=== PATIENT | male | born 1970 | race Two or more races ===

== ENCOUNTER 2025-02-02 05:49 | Emergency (ER) | payer OTHER ==
[~2025-02-02] VITALS: Ht 172.7 cm; Wt 77.1 kg
[2025-02-02] MEDS ORDERED: ZOLOFT25 MG PO (06:05)
[2025-02-02] MEDS ORDERED: WELLBUTRIN SR100 MG PO (06:05)
[2025-02-02] MEDS ORDERED: LIPITOR40 M1 PO (06:05)
[2025-02-02] MEDS ORDERED: HYOSCYAMINE SULFATE 0.125 MG TAB.SUBL SL STA (06:49)
[2025-02-02] MEDS ORDERED: 0.9 % SODIUM CHLORIDE 1,000 ML IV STA (06:50)
[2025-02-02] MEDS ORDERED: KETOROLAC TROMETHAMINE 30 MG VIAL IV STA (06:51)
[2025-02-02] MEDS ORDERED: MORPHINE SULFATE 4 MG/ML VIAL IV STA (06:51)
[2025-02-02] MEDS ORDERED: HYOSCYAMINE SULFATE 0.125 MG TAB.SUBL ONE (07:06)
[2025-02-02] MEDS ORDERED: KETOROLAC TROMETHAMINE 30 MG VIAL ONE (07:06)
[2025-02-02 07:51] LABS: HEMATOCRIT 43.5 % (39.0-48.0); HEMOGLOBIN 15.3 g/dL (13-16.00); MEAN CORPUSCULAR HEMOGLOBIN 31.2 pg (27.00-32.0); MEAN CORPUSCULAR HGB CONC 35.1 g/dl (32.0-36.0); PLATELET COUNT 266 K/uL (150-450); RED BLOOD COUNT 4.89 M/uL (4.00-6.00); RED CELL DISTRIBUTION WIDTH 13.2 % (11.5-14.5)
[2025-02-02 08:10] LABS: CALCIUM 9.8 mg/dL (8.5-10.1); CREATININE SERUM 1.13 mg/dL (0.70-1.30); GFR 67.88; POTASSIUM 3.71 mEq/L (3.5-5.1)
[2025-02-02 08:11] LABS: INR 1.06; PARTIAL THROMBOPLASTIN TIME 23.7 SECONDS (22.0-34.0); PROTHROMBIN TIME 11.5 SECONDS (9.0-11.5)
[2025-02-02] MEDS ORDERED: SODIUM BICARBONATE 50MEQ/50ML VIAL IV ONE (08:50)
[2025-02-02] MEDS ORDERED: ZOFRAN8 MG PO (13:18)
[2025-02-02] MEDS ORDERED: METRONIDAZOLE500 MG PO (13:18)
[2025-02-02] MEDS ORDERED: KETO10TA2 PO (13:18)
[2025-02-02] MEDS ORDERED: PEPCID AC20 MG PO (13:18)
[2025-02-02] MEDS ORDERED: CIPRO500 MG PO (13:18)
== END 2025-02-02 13:27 | disposition home or self-care (01) ==
LOC: ER 05:50
DX: R10.9 Unspecified abdominal pain (principal); R11.10 Vomiting, unspecified

== ENCOUNTER 2025-02-04 18:39 | Inpatient (IN) | payer OTHER ==
[~2025-02-04] VITALS: Ht 172.7 cm; Wt 122.5 kg
[~2025-02-04 18:39] MED LIST: CIPRO500 MG PO; KETO10TA2 PO; LIPITOR40 M1 PO; METRONIDAZOLE500 MG PO; PEPCID AC20 MG PO; WELLBUTRIN SR100 MG PO; ZOFRAN8 MG PO; ZOLOFT25 MG PO
--- NOTE | 2025-02-04 18:58 | NUR ---
PTE ALERTA Y ORIENTADO X3 REFIERE VENIR A BRAD DEBIDO A QUE EL MISMO FUE DADO DE PRADIP EL TONO CON TRATAMIENTO EN EL HOGAR YA QUE EL MISMO NO QUISO ESPERAR A SER VISTO POR INTERNISTA. PTE EXPRESA QUE LOS MEDICAMENTOS NO LO JONES AYUDADO Y QUE TIENE MUCHO DOLOR ABDOMINAL, DIFICULTAD PARA EVACUAR Y DOLOR EN DIVERTICULOS. SE MIDEN S/V Y SE UBICA.
[2025-02-04] MEDS ORDERED: METRONIDAZOLE/SODIUM CHLORIDE 500 MG/100 ML PIGGYBACK IV ONE ×2 (19:30→19:32)
[2025-02-04] MEDS ORDERED: CIPROFLOXACIN IN 5 % DEXTROSE 400 MG/200 ML PIGGYBAG IV ONE ×2 (19:30→19:32)
[2025-02-04] MEDS ORDERED: KETOROLAC TROMETHAMINE 30 MG VIAL IV ONE (19:30)
[2025-02-04] MEDS ORDERED: 0.9 % SODIUM CHLORIDE 1,000 ML IV SCH (19:30)
[2025-02-04] MEDS ORDERED: KETOROLAC TROMETHAMINE 30 MG VIAL ONE (19:32)
[2025-02-04 19:54] LABS: HEMATOCRIT 39.6 % (39.0-48.0); HEMOGLOBIN 13.6 g/dL (13-16.00); MEAN CELL VOLUME 89.7 fL (80.0-100.00); MEAN CORPUSCULAR HEMOGLOBIN 30.8 pg (27.00-32.0); MEAN CORPUSCULAR HGB CONC 34.4 g/dl (32.0-36.0); PLATELET COUNT 217 K/uL (150-450); RED BLOOD COUNT 4.42 M/uL (4.00-6.00); RED CELL DISTRIBUTION WIDTH 13.5 % (11.5-14.5)
--- NOTE | 2025-02-04 20:09 | NUR ---
SE ORIENTA A PACIENTE SOBRE [place] MEDICO, REFIERE ENTENDER. SE REALIZAN MUESTRAS DE LABORATORIO BAJO MEDIDAS ASEPTICAS. SE ADMINISTRAN MEDICAMENTOS JOLIE ORDEN MEDICA. PENDIENTE RE-EVALUACION MEDICA.
[2025-02-04 20:19] LABS: CALCIUM 9.2 mg/dL (8.5-10.1); CREATININE SERUM 1.07 mg/dL (0.70-1.30); GFR 72.29; POTASSIUM 3.41 mEq/L (3.5-5.1)
[2025-02-04 20:31] LABS: PH,URINE 5.5 (5.0-8.0); URINE APPEARANCE Clear; URINE BILIRRUBIN Negative (NEGATIVE); URINE BLOOD Negative; URINE COLOR Yellow; URINE GLUCOSE Negative (NEGATIVE); URINE KETONE Negative (NEGATIVE); URINE LEUKOCYTE Trace; URINE NITRATE Negative; URINE PROTEIN Negative (NEGATIVE)
[2025-02-04 20:32] LABS: URINE EPITHELIAL CELLS 10.9 uL (0.0-38.8); URINE RBC 5.4 uL (0.0-20.8)
[2025-02-05] VITALS (11 sets, daily range): BP systolic 140–155; BP diastolic 74–92; O2SAT 95–100
[2025-02-05] MEDS ORDERED: PANTOPRAZOLE SODIUM 40 MG/VIAL VIAL IV SCH (00:56)
[2025-02-05] MEDS ORDERED: 0.9 % SODIUM CHLORIDE 1,000 ML IV SCH (01:00)
[2025-02-05] MEDS ORDERED: VANCOMYCIN HCL 1,000 MG VIAL IV ONE (01:00)
[2025-02-05] MEDS ORDERED: MORPHINE SULFATE 4 MG/ML CARTRIDGE IV PRN (01:00)
[2025-02-05] MEDS ORDERED: POTASSIUM CHLORIDE 20MEQ/100ML H2O PB IV ONE ×2 (01:00→01:43)
[2025-02-05] MEDS ORDERED: ONDANSETRON HCL 4 MG in 0.9 % SODIUM CHLORIDE 50 ML IV PRN (01:00)
[2025-02-05] MEDS ORDERED: VANCOMYCIN HCL 1,000 MG VIAL ONE (01:43)
[2025-02-05] MEDS ORDERED: MEROPENEM 500 MG/VIAL VIAL IV SCH (02:00)
[2025-02-05 03:13] LABS: ABG PH 7.407 (7.35-7.45); ABG PO2 75.8 mmHg (80-100); ABG pCO2 36.3 mmHg (35-45); BASE EXCESS -1.8 mmol/l
[2025-02-05 03:14] LABS: INR 1.08; PARTIAL THROMBOPLASTIN TIME 29.7 SECONDS (22.0-34.0); PROTHROMBIN TIME 11.7 SECONDS (9.0-11.5)
[2025-02-05 03:14] LABS: BICARBONATE 22.3 mmol/l (23-25); Tco2 23.5 mmol/l; allen test SATISFACTORY; mode ROOM AIR; o2 21 %; puncture site RADIAL RIGHT
[2025-02-05 03:24] LABS: MAGNESIUM 2.3 mg/dL (1.8-2.4); PHOSPHOROUS 2.4 mg/dL (2.5-4.9)
[2025-02-05 03:37] LABS: C-REACTIVE PROTEIN 26.6 MG/DL (0.00-0.29)
[2025-02-05] MEDS ORDERED: PIPERACILLIN/TAZOBACTAM SODIUM 4.5 GM in DEXTROSE 5 % IN WATER 100 ML IV SCH (18:00)
[2025-02-06] VITALS (9 sets, daily range): BP systolic 142–174; BP diastolic 86–94; O2SAT 90–98
[2025-02-06 04:21] LABS: HEMATOCRIT 36.2 % (39.0-48.0); HEMOGLOBIN 12.6 g/dL (13-16.00); MEAN CELL VOLUME 89.5 fL (80.0-100.00); MEAN CORPUSCULAR HGB CONC 34.7 g/dl (32.0-36.0); PLATELET COUNT 260 K/uL (150-450); RED BLOOD COUNT 4.05 M/uL (4.00-6.00); RED CELL DISTRIBUTION WIDTH 13.5 % (11.5-14.5)
[2025-02-06 04:36] LABS: ALBUMIN 2.7 gm/dL (3.4-5.0); BILIRUBIN TOTAL 0.88 mg/dL (0.3-1.2); CALCIUM 8.3 mg/dL (8.5-10.1); CREATININE SERUM 0.88 mg/dL (0.70-1.30); GFR 90.59; PHOSPHOROUS 2.8 mg/dL (2.5-4.9); POTASSIUM 3.61 mEq/L (3.5-5.1); TOTAL PROTEIN 5.7 gm/dL (6.4-8.2)
[2025-02-06 15:56] LABS: ALBUMIN 2.9 gm/dL (3.4-5.0); BILIRUBIN TOTAL 1.04 mg/dL (0.3-1.2); CALCIUM 8.8 mg/dL (8.5-10.1); CREATININE SERUM 0.79 mg/dL (0.70-1.30); GFR 102.6; GLOBULINA 3.4 G/DL (2.4-3.5); POTASSIUM 3.76 mEq/L (3.5-5.1); TOTAL PROTEIN 6.3 gm/dL (6.4-8.2)
[2025-02-06] MEDS ORDERED: VANCOMYCIN HCL 5 MG/ML REDILUIDO IV SCH (17:00)
[2025-02-07 01:04] VITALS: BP 170/90
[2025-02-07 02:39] VITALS: O2SAT 90
[2025-02-07 05:44] LABS: HEMATOCRIT 34.8 % (39.0-48.0); HEMOGLOBIN 11.6 g/dL (13-16.00); MEAN CELL VOLUME 91.2 fL (80.0-100.00); MEAN CORPUSCULAR HEMOGLOBIN 30.5 pg (27.00-32.0); MEAN CORPUSCULAR HGB CONC 33.4 g/dl (32.0-36.0); PLATELET COUNT 265 K/uL (150-450); RED BLOOD COUNT 3.81 M/uL (4.00-6.00); RED CELL DISTRIBUTION WIDTH 13.2 % (11.5-14.5)
[2025-02-07 08:49] VITALS: O2SAT 95
[2025-02-07 09:02] VITALS: BP 138/85; O2SAT 96
[2025-02-07 13:53] VITALS: O2SAT 95
[2025-02-07 17:26] VITALS: BP 149/77
[2025-02-07] MEDS ORDERED: ACETAMINOPHEN 650 MG SUPP.RECT RECTAL PRN (17:45)
[2025-02-08 01:06] VITALS: BP 169/99; O2SAT 96
[2025-02-08 09:31] VITALS: BP 140/70
[2025-02-08 17:39] VITALS: BP 142/92
[2025-02-09 01:00] VITALS: BP 110/68; O2SAT 95
[2025-02-09 07:33] LABS: HEMATOCRIT 36.6 % (39.0-48.0); HEMOGLOBIN 12.2 g/dL (13-16.00); MEAN CORPUSCULAR HEMOGLOBIN 30.5 pg (27.00-32.0); MEAN CORPUSCULAR HGB CONC 33.5 g/dl (32.0-36.0); PLATELET COUNT 315 K/uL (150-450); RED BLOOD COUNT 4.02 M/uL (4.00-6.00); RED CELL DISTRIBUTION WIDTH 13.1 % (11.5-14.5)
[2025-02-09 08:23] LABS: ALBUMIN 2.5 gm/dL (3.4-5.0); BILIRUBIN TOTAL 0.55 mg/dL (0.3-1.2); CALCIUM 8.2 mg/dL (8.5-10.1); CREATININE SERUM 0.51 mg/dL (0.70-1.30); GFR 170.01; GLOBULINA 2.9 G/DL (2.4-3.5); MAGNESIUM 1.6 mg/dL (1.8-2.4); PHOSPHOROUS 3.8 mg/dL (2.5-4.9); POTASSIUM 3.68 mEq/L (3.5-5.1); TOTAL PROTEIN 5.4 gm/dL (6.4-8.2)
[2025-02-09 09:27] VITALS: BP 165/75
[2025-02-09 10:07] LABS: C-REACTIVE PROTEIN 12.7 MG/DL (0.00-0.29)
[2025-02-09] MEDS ORDERED: MAGNESIUM SULFATE IN WATER 50 ML IV NR (12:00)
[2025-02-09 19:32] VITALS: BP 137/79
[2025-02-10] VITALS: BP 136/82; O2SAT 95
[2025-02-10 09:07] VITALS: BP 133/83; O2SAT 95
[2025-02-10] MEDS ORDERED: VANCOMYCIN HCL 1,000 MG,VANCOMYCIN HCL 500 MG IV SCH (17:00)
[2025-02-10 18:08] VITALS: BP 136/85
[2025-02-11 02:59] VITALS: BP 122/75
[2025-02-11 06:15] LABS: HEMATOCRIT 32.6 % (39.0-48.0); MEAN CELL VOLUME 90.3 fL (80.0-100.00); MEAN CORPUSCULAR HEMOGLOBIN 30.4 pg (27.00-32.0); MEAN CORPUSCULAR HGB CONC 33.7 g/dl (32.0-36.0); PLATELET COUNT 394 K/uL (150-450); RED BLOOD COUNT 3.62 M/uL (4.00-6.00); RED CELL DISTRIBUTION WIDTH 13.3 % (11.5-14.5)
[2025-02-11 06:45] LABS: ALBUMIN 2.3 gm/dL (3.4-5.0); BILIRUBIN TOTAL 0.42 mg/dL (0.3-1.2); CALCIUM 8.4 mg/dL (8.5-10.1); CREATININE SERUM 0.74 mg/dL (0.70-1.30); GFR 110.64; GLOBULINA 3.1 G/DL (2.4-3.5); MAGNESIUM 1.8 mg/dL (1.8-2.4); PHOSPHOROUS 4.6 mg/dL (2.5-4.9); POTASSIUM 3.45 mEq/L (3.5-5.1); TOTAL PROTEIN 5.4 gm/dL (6.4-8.2)
[2025-02-11 06:48] LABS: C-REACTIVE PROTEIN 9.52 MG/DL (0.00-0.29)
[2025-02-11 08:56] VITALS: BP 137/82
[2025-02-11] MEDS ORDERED: VANCOMYCIN HCL 5 MG/ML REDILUIDO IV SCH (17:00)
[2025-02-11] MEDS ORDERED: MIDAZOLAM HCL 2 MG/2 ML VIAL IV PUSH ONE ×2 (17:45→22:30)
[2025-02-11 18:59] VITALS: BP 140/85; O2SAT 97
[2025-02-11] MEDS ORDERED: FentaNYL CITRATE/PF 50MCG/ML 2ML VIAL IJ ONE (22:30)
[2025-02-12 02:42] VITALS: BP 113/64; O2SAT 95
[2025-02-12] MEDS ORDERED: PIPERACILLIN/TAZOBACTAM SODIUM 4.5 GM VIAL IV ONE (07:52)
[2025-02-12 10:03] VITALS: BP 126/83; O2SAT 96
[2025-02-12 16:25] VITALS: BP 130/82; O2SAT 96
[2025-02-12] MEDS ORDERED: MORPHINE SULFATE 2 MG/ML SYRINGE IV PRN (17:00)
[2025-02-12] MEDS ORDERED: FLUCONAZOLE IN NACL,ISO-OSM 400 MG/200 ML PIGGYBAG IV SCH (17:00)
[2025-02-12 20:00] VITALS: BP 141/92
[2025-02-13 01:58] VITALS: BP 134/84; O2SAT 95
[2025-02-13] MEDS ORDERED: PIPERACILLIN/TAZOBACTAM SODIUM 4.5 GM VIAL IV ONE (08:03)
[2025-02-13 10:16] VITALS: BP 119/76; O2SAT 97
[2025-02-13] MEDS ORDERED: FLUCONAZOLE IN NACL,ISO-OSM 100 ML IV SCH (17:00)
[2025-02-13 17:33] VITALS: BP 135/82; O2SAT 97
[2025-02-14 02:45] VITALS: BP 145/85; O2SAT 95
[2025-02-14] MEDS ORDERED: PIPERACILLIN/TAZOBACTAM SODIUM 4.5 GM VIAL IV ONE (08:21)
[2025-02-14 09:54] VITALS: BP 142/84; O2SAT 97
[2025-02-14] MEDS ORDERED: CIPROFLOXACIN IN 5 % DEXTROSE 400 MG/200 ML PIGGYBAG IV SCH (17:00)
[2025-02-14 17:03] VITALS: BP 124/76
[2025-02-14] MEDS ORDERED: METRONIDAZOLE/SODIUM CHLORIDE 100 ML IV SCH (21:00)
[2025-02-15 01:28] VITALS: BP 141/79; O2SAT 95
[2025-02-15 08:14] VITALS: BP 146/89; O2SAT 94
== END 2025-02-15 09:29 | disposition home or self-care (01) | DRG 392 ==
LOC: ER 18:40 → O/R 02-05 00:59 → ICU-2 02-05 00:59 → MEDI 02-05 00:59 → O/R 02-05 14:37 → MEDI 02-05 15:31 → O/R 02-05 15:31 → MEDI 02-10 15:16 → O/R 02-10 15:45 → MEDI 02-10 15:45
PROVIDERS: Emergency Medicine; General Practice; Internal Medicine Infectious Disease; ADMIT Student in an Organized Health Care Education/Training Program; ATTEND Student in an Organized Health Care Education/Training Program
PROC: BW21YZZ Computerized Tomography (CT Scan) of Abdomen and Pelvis using Other Contrast (ICD-10-PCS; 2025-02-04)
PROC: 0W9G3ZZ Drainage of Peritoneal Cavity, Percutaneous Approach (ICD-10-PCS; principal; 2025-02-05)
PROC: BW21YZZ Computerized Tomography (CT Scan) of Abdomen and Pelvis using Other Contrast (ICD-10-PCS; 2025-02-10)
PROC: 02HV33Z Insertion of Infusion Device into Superior Vena Cava, Percutaneous Approach (ICD-10-PCS; 2025-02-12)
PROC: BW21YZZ Computerized Tomography (CT Scan) of Abdomen and Pelvis using Other Contrast (ICD-10-PCS; 2025-02-14)
PROC: 4A12X4Z Monitoring of Cardiac Electrical Activity, External Approach (ICD-10-PCS; 2025-02-14)
DX: K57.92 Diverticulitis of intestine, part unspecified, without perforation or abscess without bleeding (principal); K56.609 Unspecified intestinal obstruction, unspecified as to partial versus complete obstruction